=== PATIENT | female | born 1955 | race Two or more races ===

== ENCOUNTER → 2023-09-22 13:23 | Outpatient (REF) | payer MEDICARE, SELFPAY | LOC: WDC 13:23 | PROVIDERS: ATTENDING PHYSICIAN Obstetrics & Gynecology Gynecology; FAMILY PHYSICIAN Family Medicine | DX: Z12.31 Encounter for screening mammogram for malignant neoplasm of breast (principal) | CPT/HCPCS: 77063; 77067 ==

== ENCOUNTER → 2023-10-12 09:34 | Outpatient (REF) | payer MEDICARE, SELFPAY | LOC: RAD 09:34 | PROVIDERS: ATTENDING PHYSICIAN Family Medicine; REFERRING PHYSICIAN Obstetrics & Gynecology Gynecology | DX: Z78.0 Asymptomatic menopausal state (principal) | CPT/HCPCS: 77080 ==

== ENCOUNTER → 2024-02-12 06:26 | Outpatient (REF) | payer MEDICARE, SELFPAY ==
[2024-02-12 07:25] LABS: % Basophils 0.4 % (0-2); % Eosinophils 4.9 % (0-6); % Immature Granulocytes 0.2 % (0-0.5); % Lymphocytes 36.2 % (20.5-51.1); % Neutrophils 51.3 % (42.2-75.2); Absolute Eosinophils 0.3 10^3/uL (0-0.7); Absolute Lymphocytes 1.9 10^3/uL (1.2-3.4); Absolute Monocytes 0.4 10^3/uL (0.1-0.6); Absolute Neutrophils 2.7 10^3/uL (1.4-6.5); Hematocrit 37.8 % (37.0-47.0); Hemoglobin 12.4 g/dL (12.0-16.0); Mean Corp Hgb Conc. 32.8 g/dL (33.0-37.0); Mean Corpuscular Hgb 27.9 pg (27.0-31.0); Mean Corpuscular Volume 84.9 fL (81.0-99.0); Mean Platelet Volume 9.6 fL (7.4-10.4); Nucleated Red Blood Cells % 0 %; Platelet Count 201 10^3/uL (130-400); Red Blood Cell Count 4.45 10^6/uL (4.20-5.40); Red Cell Dist. Width 12.9 % (11.5-14.5); White Blood Cell Count 5.3 10^3/uL (4.8-10.8)
[2024-02-12 08:01] LABS: Blood Urea Nitrogen 20 mg/dl (7-17); Carbon Dioxide 27 mmol/L (22-30); Chloride 98 mmol/L (98-107); Glucose 94 mg/dl (70-99); Potassium 5.2 mmol/L (3.5-5.1); Sodium 133 mmol/L (135-145); eGFR > 60.00
== END ==
LOC: RCS 06:26
PROVIDERS: ATTENDING PHYSICIAN Orthopaedic Surgery; FAMILY PHYSICIAN Family Medicine
DX: Z01.818 Encounter for other preprocedural examination (principal)
CPT/HCPCS: 36415; 80048; 85025; 93005

== ENCOUNTER 2024-03-11 13:11 | Emergency (ER) | payer MEDICARE, SELFPAY ==
[2024-03-11 13:33] VITALS: BP 128/76
[2024-03-11 14:00] VITALS: BP 117/66
[2024-03-11 15:00] VITALS: BP 112/76
[2024-03-11] MEDS: NSS 1000 IV (15:36)
--- NOTE | 2024-03-11 15:42 | ED.GENMED ---
History of Present Illness
<Kamliah Guadalupe PA-C - Last Filed: 03/11/24 18:20>
General
Chief Complaint: Fainting/Passed Out
Source: patient
Exam Limitations: none
Time Seen by Provider: 03/11/24 14:57
Nursing documentation reviewed up to this point in time: agreed with
History of Present Illness
History of Present Illness:
Patient is a 69-year-old female with history hypertension, hypothyroid presenting to the emergency department for evaluation of syncopal episode at home. Patient underwent an uncomplicated right total knee replacement this morning at [facility]
orthopedics. She reports only local anesthesia for the procedure. Patient was given an oxycodone prior to leaving surgical center this morning. 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
States she was sitting in a chair when she felt extremely lightheaded and lost consciousness. Patient's states that this occurred a few times back to back. Patient was seated at the time and did not sustain any injuries.
Given what appeared to be multiple syncopal episodes back to back�patient has been did call 911. EMS did give patient a dose of Narcan. At this time patient states that she is asymptomatic and feeling back to her baseline. Patient denies any
chest pain, shortness of breath back pain, numbness/tingling in lower extremities, headache, dizziness and/or lightheadedness.
Of note�this was patient's first time ever receiving oxycodone.
Past History
<Kamilah Guadalupe PA-C - Last Filed: 03/11/24 18:20>
Past History
ED Past Medical History: Hypothyroidism (Levothyroxine 112 mcg), Psychiatric (Celexa 10 mg daily) and Other (glaucoma eye drops)
Social History
Tobacco: Non-smoker
Personal:
Living: with family
Employment: Employed (certified public accountant)
Review of Systems
<Kamilah Guadalupe PA-C - Last Filed: 03/11/24 18:20>
Review of Systems
Allergies reviewed?: Yes
All Other Systems: ROS reviewed and negative except as documented in HPI and ROS
Phy Exam
<Kamilah Guadalupe PA-C - Last Filed: 03/11/24 18:20>
Physical Exam
Physical Exam:
Vitals: Patient's vital signs are stable. Afebrile
General: Patient is well appearing, no acute distress. Nontoxic
Skin: Warm and dry, no rashes or lesions
Head: Normocephalic, atraumatic
Eyes: Sclera nonicteric. EOMs intact. No nystagmus.
Throat: Protecting airway
Neck: Normal ROM, no cervical spine tenderness, no meningismus
Cardiac: Regular rate and rhythm, no murmurs.
Pulm: Normal respiratory effort, no wheezes, rales, rhonchi heard on exam.
Abdomen: Abdomen soft. No abdominal tenderness.
Extremities: Dressing on right knee with no evidence of bleeding. No evidence of cyanosis or edema in bilateral lower extremities. Great distal pulses in bilateral lower extremities with normal sensation
Neuro: AAOx3. CN II-XII intact. No focal neurologic deficits. Strength 5 out of 5 in upper and lower extremities. Sensation fully intact
Psychiatric: Normal affect.
Course
<Kamilah Guadalupe PA-C - Last Filed: 03/11/24 18:20>
Orders/Labs/Results
Orders:
Orders
03/11/24 15:29
Electrocardiogram (*1) Urgent
Reason for Study: Syncope
EKG- Treatment ONCE
0.9% Sodium Chloride 1000 ml [Nss] 1,000 ml IV BOLUS
Vital Signs
Initial and Last Documented VS:
Initial Vital Signs
Temp Pulse Resp Pulse Ox
98.0 F 73 16 98
03/11/24 13:32 03/11/24 13:32 03/11/24 13:32 03/11/24 13:32
Last Documented Vital Signs
Temp Pulse Resp BP Pulse Ox
98.0 F 74 16 116/83 97
03/11/24 13:32 03/11/24 16:57 03/11/24 16:57 03/11/24 16:57 03/11/24 17:19
<Neftaly Romero DO - Last Filed: 03/11/24 16:55>
Orders/Labs/Results
Orders:
Orders
03/11/24 15:29
Electrocardiogram (*1) Urgent
Reason for Study: Syncope
EKG- Treatment ONCE
0.9% Sodium Chloride 1000 ml [Nss] 1,000 ml IV BOLUS
Vital Signs
Initial and Last Documented VS:
Initial Vital Signs
Temp Pulse Resp Pulse Ox
98.0 F 73 16 98
03/11/24 13:32 03/11/24 13:32 03/11/24 13:32 03/11/24 13:32
Last Documented Vital Signs
Temp Pulse Resp BP Pulse Ox
98.0 F 74 16 116/83 97
03/11/24 13:32 03/11/24 16:57 03/11/24 16:57 03/11/24 16:57 03/11/24 17:19
<Kamilah Guadalupe PA-C - Last Filed: 03/11/24 18:20>
MDM/Problems Addressed
Differential Diagnosis Includes:
Not limited to: Medication reaction, vasovagal syncope, dehydration, orthostatic hypotension, cardiac arrhythmia
MDM/Problems Addressed:
69-year-old female with history hypertension, hypothyroid presenting via EMS for syncopal episode at home. Patient did have a right total knee replacement this morning and was discharged home without any complications. Syncopal episode occurred
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 Patient had received one 5 mg oxycodone prior to leaving surgical center. Given 1 dose of Narcan and transported via EMS. Patient asymptomatic on my initial assessment. Vital signs
stable, afebrile. Physical exam as above. Patient is well-appearing, in no apparent distress. Heart regular rate and rhythm. Lungs clear bilaterally. She has great distal pulses in bilateral upper and lower extremities. No focal neurologic
deficits. Dressing intact on right anterior knee without any obvious bleeding. Patient was up and walking with nurse without any repeat lightheaded/dizzy episodes. She has a steady gait. EKG was obtained which shows no acute cardiac arrhythmias.
No acute ischemia noted. A bag of IV fluids was given and patient is eating/drinking in room and tolerating p.o. intake. Suspect likely vasovagal event. Do not suspect due to oxycodone given syncopal event was greater than 2 hours from dose.
Patient is feeling back to baseline. Stable for discharge home with close return precautions. Recommended staying well-hydrated and following up with orthopedics as needed. Patient and patient's comfortable with plan. All questions
answered.
Chronic conditions affecting care:
N/A
Acute Exacerbation and/or Progression of Chronic Illness:
N/A
<Kamilah Guadalupe PA-C - Last Filed: 03/11/24 18:20>
*Pulse Oximetry
Patient hypoxic: no
*EKG
Interpreted by ED Provider?: Yes
EKG Intrepretation Date: 03/11/24
Interpretation: normal
Comparison EKG: changes noted
Heart Rate: 80
Rate: normal
Rhythm: sinus
Dolph: normal axis
Interval: normal interval
QRS Pattern: normal QRS
Ischemia: non-specific ST changes
*Freight Sorter Interpretation
Rate: normal
Interpretation: normal
Heart Rate: 70
Rhythm: sinus
*Critical Care Note
Total Time (30-74mins, 75-104mins- exclusive of procedures): Not Applicable
ED Attending Note
<Kamilah Guadalupe PA-C - Last Filed: 03/11/24 18:20>
-
Portions of this chart may have been created with voice recognition software.� Occasional wrong word or��sound alike� substitutions may have occurred due to the inherent limitations of voice recognition software.
<Neftaly Romero DO - Last Filed: 03/11/24 16:55>
ED Attending Note
Patient seen and examined by attending physician: Yes
I performed the substantive portion of visit, reviewed & personally made and approve the management plan that is documented in note by myself or JUNIOR.: Yes
ED Attending Note:
69-year-old female who had a knee replacement today. States everything is going well and had had a nerve block and a dose of oxycodone before leaving. Patient went home was with the visiting nurse. She started get uncomfortable and the nurse had
her walk. She then sat down and passed out. She was seated in the chair and sounds like she passed out 2 or 3 times in a brief span. She was not laid to the floor. She now feels better. EMS arrived and did give a dose of Narcan. Patient denies
any associate chest pain, shortness of breath or palpitations. No seizure activity. Patient now feels 'wonderful'. Exam: Awake and alert. heart regular. R knee wound dressed. no bleeding. Assessment plan: Suspect vasovagal event. No clinical
suspicion for arrhythmia. No other symptoms associated now looks well. Okay for discharge
Discharge Plan
Departure
Patient Disposition: Home (Routine Discharge)
Date of Disposition: 03/11/24
Time of Disposition: 17:02
Patient with high blood pressure during this ER visit?: Yes
Condition: Good
Covid-19: Not Applicable
Discharge Problem:
Syncope
Instructions: Syncope (Fainting) (DC), BLOOD PRESSURE
Referrals:
Clara Kebede DO [Family Provider] -
Activity Restrictions/Additional Instructions:
RETURN TO THE EMERGENCY DEPARTMENT WITH ANY FEVERS, CHILLS, CHEST PAIN SHORTNESS OF BREATH, PERSISTENT DIZZINESS/LIGHTHEADEDNESS, SIGNS OF INFECTION, WORSENING IN CURRENT SYMPTOMS, OR ANY OTHER CONCERNS
-Continue to follow your postoperative instructions by orthopedic surgeon as written. It is important that you keep your follow-up appointment as scheduled.
-Stay well-hydrated.
-You are going to take an oxycodone make sure that you are seated/lying down. You should discontinue this medication with any repeat lightheaded sensations.
Monitor your symptoms closely return to the emergency department for any acute worsening/new symptoms
Interventions
Interventions:
*Risk Screen - Suicide Last Done: 03/11/24 13:20
*General Assessment Last Done: 03/11/24 13:20
*Neglect/Abuse Screening Last Done: 03/11/24 13:20
ED- Fall Risk Assessment Last Done: 03/11/24 13:20
*ED COVID-19 Vaccine History Last Done: 03/11/24 13:20
*Nursing Disposition Last Done: 03/11/24 17:19
ED- Cardiac Assessment Last Done: 03/11/24 13:20
ED- Neurological Assessment Last Done: 03/11/24 13:20
Discharge Date and Time
Discharge Date/Time: 03/11/24 17:20
Print Language: BELARUSIAN
[2024-03-11 16:01] VITALS: BP 148/83
[2024-03-11 16:57] VITALS: BP 116/83
== END 2024-03-11 17:20 | disposition home or self-care (01) ==
LOC: EMR 13:11
PROVIDERS: EMERGENCY PHYSICIAN Emergency Medicine; FAMILY PHYSICIAN Family Medicine
DX: R55 Syncope and collapse (principal); I10 Essential (primary) hypertension; E03.9 Hypothyroidism, unspecified; Z96.651 Presence of right artificial knee joint; Z79.899 Other long term (current) drug therapy
CPT/HCPCS: 99283; 96360; 93005

== ENCOUNTER → 2024-08-23 12:50 | Outpatient (REF) | payer MEDICARE, SELFPAY | LOC: RAD 12:50 | PROVIDERS: ATTENDING PHYSICIAN Internal Medicine Nephrology; FAMILY PHYSICIAN Family Medicine | DX: E78.1 Pure hyperglyceridemia (principal) | CPT/HCPCS: 71046 ==

== ENCOUNTER → 2024-09-10 08:29 | Outpatient (REF) | payer MEDICARE, SELFPAY | LOC: RAD 08:29 | PROVIDERS: ATTENDING PHYSICIAN Internal Medicine Nephrology; FAMILY PHYSICIAN Family Medicine | DX: E87.1 Hypo-osmolality and hyponatremia (principal) | CPT/HCPCS: 76770 ==

== ENCOUNTER → 2024-09-24 13:37 | Outpatient (REF) | payer MEDICARE, SELFPAY | LOC: WDC 13:37 | PROVIDERS: ATTENDING PHYSICIAN Obstetrics & Gynecology Gynecology; FAMILY PHYSICIAN Family Medicine | DX: Z12.31 Encounter for screening mammogram for malignant neoplasm of breast (principal) | CPT/HCPCS: 77063; 77067 ==

== ENCOUNTER → 2024-10-21 12:28 | Outpatient (REF) | payer MEDICARE, SELFPAY | LOC: PAVMRI 12:28 | PROVIDERS: ATTENDING PHYSICIAN Physician Assistant | DX: M25.562 Pain in left knee (principal) | CPT/HCPCS: 73721 ==